=== PATIENT | male | born 1990 | race Caucasian/White ===

== ENCOUNTER 2020-09-06 09:00 | Outpatient (CLI) | payer OTHER | END 2020-09-06 23:59 | disposition home or self-care (01) | LOC: LAB 09:00 | PROVIDERS: ATTEND Student in an Organized Health Care Education/Training Program | DX: Z01.812 Encounter for preprocedural laboratory examination (principal); Z20.822 Contact with and (suspected) exposure to COVID-19 | CPT/HCPCS: 87426; C9803 ×2; U0003 ==

== ENCOUNTER 2020-09-16 14:32 | Outpatient (CLI) | payer OTHER | END 2020-09-16 23:59 | disposition home or self-care (01) | LOC: LAB 14:32 | PROVIDERS: ATTEND Specialist | DX: Z01.812 Encounter for preprocedural laboratory examination (principal); Z20.822 Contact with and (suspected) exposure to COVID-19 | CPT/HCPCS: C9803; U0003 ==

== ENCOUNTER 2020-09-20 11:18 | Day surgery (SDC) | payer OTHER ==
[2020-09-20] MEDS ORDERED: IOHEXOL 240MG/ML 50 ML IV ONE (11:24)
[2020-09-20] MEDS ORDERED: LIDOCAINE HCL/PF 1% 30 ML SDV ONE (11:25)
[2020-09-20] MEDS ORDERED: BUPIVACAINE 0.5 % PF 150 MG/30 ML VIAL ONE (11:25)
[2020-09-20] MEDS ORDERED: BETA ACET/BET NA PHOS MDV 6 MG/ML VIAL ONE (11:34)
== END 2020-09-20 14:00 | disposition home or self-care (01) ==
LOC: DS 11:18
PROVIDERS: ATTEND Student in an Organized Health Care Education/Training Program
DX: M25.552 Pain in left hip (principal)
CPT/HCPCS: 20610; 73501; 77002; A6402; C1713; J0702; J2704; J3490 ×2; Q9966; 73020